=== PATIENT | female | born 1945 ===

== ENCOUNTER 2018-02-14 09:21 | Emergency (ER) | payer MEDICARE, MEDICAID ==
--- NOTE | 2018-02-14 10:19 | ED PDOC ---
Lower Extremity Pain/Injury Time Seen by Provider: 02/14/18 09:55 Chief Complaint (Nursing): Lower Extremity Problem/Injury Chief Complaint (Provider): Lower Extremity Problem/Injury History Per: Other (home health aid) History/Exam Limitations: clinical condition (dementia; CVA) Onset/Duration Of Symptoms: Days (x2) Current Symptoms Are (Timing): Still Present Additional Complaint(s): 72 year old female with pmHx of CVA, dementia, and HTN, arrives to ED with home health aid for an evaluation of right leg pain since yesterday. Patient was given her normal dose of Neurontin but did not take any other medication for pain. Of note, patient is a poor historian and has limited mobility. 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 PCP: Dr. Mc Russell Past Medical History Reviewed: Historical Data, Nursing Documentation, Vital Signs Vital Signs: Last Vital Signs Temp 98.9 F 02/14/18 09:24 Pulse 69 02/14/18 09:24 Resp 18 02/14/18 09:24 BP 151/68 H 02/14/18 09:24 Pulse Ox 96 02/14/18 09:24 - Medical History PMH: CVA, Dementia, Diabetes, HTN, Hyperlipidemia - Family History Family History: States: Unknown Family Hx - Immunization History Hx Tetanus Toxoid Vaccination: No Hx Influenza Vaccination: No Hx Pneumococcal Vaccination: No - Home Medications Home Medications: Ambulatory Orders Medication Instructions Recorded RX: Aspirin [Aspirin Chewable] 81 mg PO DAILY 04/07/16 RX: Atorvastatin Calcium 20 mg PO HS 04/07/16 RX: Clopidogrel [Plavix] 75 mg PO DAILY 04/07/16 RX: Gabapentin [Neurontin] 1 - 3 cap PO HS 04/07/16 RX: Insulin Aspart/Insulin Aspar 12 units SQ BID 04/07/16 [Novolog Mix 70/30 (70/30 units/ml)] RX: Insulin Detemir [Levemir] 40 unit SQ DAILY 04/07/16 RX: Lisinopril [Zestril] 10 mg PO DAILY 04/07/16 RX: Metformin HCl [Glucophage] 500 mg PO BID 04/07/16 RX: Multivit-Min/FA/Lycopen/Lutein 1 each PO DAILY 04/07/16 [Centrum Silver Tablet] RX: amLODIPine [Norvasc] 10 mg PO DAILY 04/07/16 Cephalexin [cephalexin] 500 mg PO Q8 #15 cap 04/14/16 RX: traMADol [Ultram] 50 mg PO Q6 PRN #30 tab 04/14/16 - Allergies Allergies/Adverse Reactions: Allergies Allergy/AdvReac Type Severity Reaction Status Date / Time No Known Allergies Allergy Verified 02/14/18 09:35 Review of Systems ROS Statement: Except As Marked, All Systems Reviewed And Found Negative Musculoskeletal: Positive for: Leg Pain (right-sided) Physical Exam - Reviewed Nursing Documentation Reviewed: Yes Vital Signs Reviewed: Yes - Physical Exam Appears: Positive for: Non-toxic, No Acute Distress Head Exam: Positive for: ATRAUMATIC, NORMAL INSPECTION Skin: Positive for: Warm, Dry Eye Exam: Positive for: EOMI Extremity: Positive for: Normal ROM (right leg and foot joints), Capillary Refill (< 2 seconds to bilateral legs), Other (right leg weaker compared to left). Negative for: Tenderness, Pedal Edema, Calf Tenderness, Deformity, Swelling (or erythema/ecchymosis) Neurologic/Psych: Positive for: Alert, Other - ECG O2 Sat by Pulse Oximetry: 96 (RA) Pulse Ox Interpretation: Normal - Progress Re-evaluation Time: 15:00 Condition: Re-examined, Improved Medical Decision Making Medical Decision Making: Initial Impression: Leg pain Differential Diagnosis: musculoskeletal pain, DVT, neuropathy Initial Plan: * Ultram 50mg PO * US duplex right LE Time: 1141 --POC glucose: 115 Time: 13:32 US Lower Extremity FINDINGS: COMMON FEMORAL VEIN: Unremarkable. SUPERFICIAL FEMORAL VEIN: Unremarkable. POPLITEAL VEIN: Unremarkable. POSTERIOR TIBIAL VEIN: Unremarkable. OTHER FINDINGS: None. IMPRESSION: No evidence of deep venous thrombosis in the right lower extremity. Scribe Attestation: Documented by Tiffanie Maxwell, acting as a scribe for Peyton Bunch MD. Provider Scribe Attestation: All medical record entries made by the Scribe were at my direction and personally dictated by me. I have reviewed the chart and agree that the record accurately reflects my personal performance of the history, physical exam, medical decision making, and the department course for this patient. I have also personally directed, reviewed, and agree with the discharge instructions and disposition. Disposition - Clinical Impression Clinical Impression: Leg pain - Patient ED Disposition Is Patient to be Admitted: No Doctor Will See Patient In The: Office Counseled Patient/Family Regarding: Studies Performed, Diagnosis, Need For Followup - Disposition Referrals: Mc Russell MD [Family Provider] - Disposition: Routine/Home Disposition Time: 15:00 Condition: GOOD Additional Instructions: MARY JOYNER, thank you for letting us take care of you today. Your provider was Peyton Bunch MD and you were treated for LT LEG PAIN. The emergency medical care you received today was directed at your acute symptoms. If you were prescribed any medication, please fill it and take as directed. It may take several days for your symptoms to resolve. Return to the Emergency Department if your symptoms worsen, do not improve, or if you have any other problems. Please contact your doctor or call one of the physicians/clinics you have been referred to that are listed on the Patient Visit Information form that is included in your discharge packet. Bring any paperwork you were given at discharge with you along with any medications you are taking to your follow up visit. Our treatment cannot replace ongoing medical care by a primary care provider outside of the emergency department. Thank you for allowing the [facility] team to be part of your care today. If you had an X-Ray or CT scan: A Radiologist will review the ED reading if any change in treatment is needed we will contact you. If you had a blood, urine, or wound culture: It will take several days for the results, if any change in treatment is needed we will contact you. If you had an STI test: It will take 48 hours for the results. Please call after 1 week if you have not heard back. Instructions: Muscle and Bone Pain (DC) Print Language: THAI
--- NOTE | 2018-02-14 13:35 | US ---
Date of service: 02/14/2018 PROCEDURE: Right lower extremity venous duplex Doppler. HISTORY: right leg pain COMPARISON: None available. TECHNIQUE: Common femoral, superficial femoral, popliteal and posterior tibial veins were evaluated. Flow was assessed with color Doppler, compressibility, assessment of phasic flow and augmentation response. FINDINGS: COMMON FEMORAL VEIN: Unremarkable. SUPERFICIAL FEMORAL VEIN: Unremarkable. POPLITEAL VEIN: Unremarkable. POSTERIOR TIBIAL VEIN: Unremarkable. OTHER FINDINGS: None. IMPRESSION: No evidence of deep venous thrombosis in the right lower extremity.
[2018-02-14 18:21] VITALS: BP 140/70; PULSE 77; RESP 17; TEMP 98.1
[2018-02-14 20:40] VITALS: O2SAT 96
== END 2018-02-14 20:03 | disposition home or self-care (01) ==
LOC: H.ER 09:21
DX: M79.605 Pain in left leg (principal); E11.9 Type 2 diabetes mellitus without complications; Z79.4 Long term (current) use of insulin; E78.5 Hyperlipidemia, unspecified; F03.90 Unspecified dementia, unspecified severity, without behavioral disturbance, psychotic disturbance, mood disturbance, and anxiety; I10 Essential (primary) hypertension; Z79.82 Long term (current) use of aspirin; Z86.73 Personal history of transient ischemic attack (TIA), and cerebral infarction without residual deficits

== ENCOUNTER 2018-03-04 09:54 | Inpatient (IN) | payer MEDICARE, MEDICAID ==
--- NOTE | 2018-03-04 10:26 | ED PDOC ---
HPI: Trauma/Fall - HPI Time Seen by Provider: 03/04/18 10:06 Chief Complaint (Nursing): Trauma Chief Complaint (Provider): Trauma History Per: Patient History/Exam Limitations: no limitations Injury Occurred (Timing): Just Before Arrival Location Of Injury: Posterior: Head Associated Symptoms: denies: LOC Additional Complaint(s): 72 year old female with a history of a CVA, a distal fibula fracture and diabetes presents to the ED via EMS with a head injury. Patient was in the bathroom of her house this morning when she slipped and fell, landing on her head. She reports no other new injury. Takes aspirin and Plavix daily. Patient does have a cachectic right leg from the stroke years ago and is also unable to lift right arm. She was evaluated for leg pain at this ED on 02/14/2018 and discharged. Denies neck pain, chest pain, back pain, vision changes, LOC, dizziness, palpitations, trouble breathing or other symptoms. PMD: Dr. cM Russell - Fall Fall:Prior To Injury: Slipped Past Medical History Reviewed: Historical Data, Nursing Documentation, Vital Signs Vital Signs: Last Vital Signs Temp 98.7 F 03/04/18 09:58 Pulse 68 03/04/18 09:58 Resp 18 03/04/18 09:58 BP 137/86 03/04/18 09:58 Pulse Ox 95 03/04/18 09:58 - Medical History PMH: CVA, Dementia, Diabetes, HTN, Hyperlipidemia - Surgical History Surgical History: No Surg Hx - Family History Family History: States: Unknown Family Hx - Immunization History Hx Tetanus Toxoid Vaccination: No Hx Influenza Vaccination: No Hx Pneumococcal Vaccination: No - Home Medications Home Medications: Ambulatory Orders Medication Instructions Recorded Insulin Aspart/Insulin Aspar 18 units SQ QAM 04/07/16 [Novolog Mix 70/30 (70/30 units/ml)] amLODIPine [Norvasc] 10 mg PO DAILY 04/07/16 Aspirin [Ecotrin] 81 mg PO DAILY 03/04/18 Atorvastatin [Lipitor] 20 mg PO HS 03/04/18 Clopidogrel [Plavix] 75 mg PO DAILY 03/04/18 Gabapentin [Neurontin] 300 mg PO BID 03/04/18 Insulin Aspart/Insulin Aspar 14 units SC QPM 03/04/18 [Novolog Mix 70/30 (70/30 units/ml)] Insulin Glargine,Hum.rec.anlog 20 units SC HS 03/04/18 [Basaglar Kwikpen U-100] Lisinopril [Zestril] 10 mg PO DAILY 03/04/18 - Allergies Allergies/Adverse Reactions: Allergies Allergy/AdvReac Type Severity Reaction Status Date / Time No Known Allergies Allergy Verified 02/14/18 09:35 Review of Systems ROS Statement: Except As Marked, All Systems Reviewed And Found Negative Skin: Positive for: Other (hematoma on posterior head) Physical Exam - Reviewed Nursing Documentation Reviewed: Yes Vital Signs Reviewed: Yes - Physical Exam Appears: Positive for: Non-toxic, No Acute Distress Head Exam: Positive for: NORMAL INSPECTION, NORMOCEPHALIC ((+) hematoma on posterior right head with mild tenderness; no growth or laceration). Negative for: ATRAUMATIC Skin: Positive for: Normal Color, Warm, Dry Eye Exam: Positive for: Normal appearance, EOMI, PERRL Neck: Positive for: Normal, Painless ROM, Supple. Negative for: Limited ROM Cardiovascular/Chest: Positive for: Regular Rate, Rhythm. Negative for: Murmur Respiratory: Positive for: Normal Breath Sounds. Negative for: Respiratory Distress Gastrointestinal/Abdominal: Positive for: Normal Exam, Soft. Negative for: Tenderness, Guarding Back: Positive for: Normal Inspection. Negative for: L CVA Tenderness, R CVA Tenderness Extremity: Positive for: Normal ROM (difficulty moving right leg; cachectic for many years; left leg full ROM ), Other (3/5 strength from left leg up. Patient is unable to lift left arm due to stroke; 5/5 strength in right side) Neurologic/Psych: Positive for: Alert, Oriented. Negative for: Motor/Sensory Deficits - Laboratory Results Result Diagrams: 03/04/18 10:35 03/04/18 10:35 Interpretation Of Abn Labs: 30/1.6 bun/cr - ECG ECG: Positive for: Interpreted By Me, Viewed By Me ECG Rhythm: Positive for: Normal QRS, Normal ST Segment, Sinus Rhythm O2 Sat by Pulse Oximetry: 95 (RA) Pulse Ox Interpretation: Normal - CT Scan/US ct Other Rad Studies (CT/US): Read By Radiologist Other Rad Interpretation: no acute - Progress ED Course And Treament: 1502: Spoke with Dr. Russell who will admit give further orders when pt. reaches floor. AAOx3. Will need obs as pt. is on plavix and asa. Medical Decision Making Medical Decision Makin:28 Impression: fall; head injury Initial Plan: --CT C-spine --CT Head --EKG --CMP --Troponin --CBC --PTT --Prothrombin --Glucose POC --NS IV Scribe Attestation: Documented by Sudha Barrios, acting as a scribe for Dmitriy Tirado MD Provider Scribe Attestation: All medical record entries made by the Scribe were at my direction and personally dictated by me. I have reviewed the chart and agree that the record accurately reflects my personal performance of the history, physical exam, med [facility] decision making, and the department course for this patient. I have also personally directed, reviewed, and agree with the discharge instructions and disposition. Disposition - Clinical Impression Clinical Impression: Head injury - Patient ED Disposition Is Patient to be Admitted: Yes Counseled Patient/Family Regarding: Studies Performed, Diagnosis - Disposition Disposition Time: 15:03 Condition: FAIR - Pt Status Changed To: Hospital Disposition Of: Observation - POA Present On Arrival: Falls Or Trauma
[2018-03-04] MEDS ORDERED: Sodium Chloride 0.9% 500 ML IV STA (10:28)
[2018-03-04 10:41] LABS: BASO # 0.1 K/uL (0.0-0.2); EOS # 0.5 K/uL (0.0-0.7); EOS % 7.4 % (0.0-4.0); HEMOGLOBIN 12.8 g/dL (12.0-16.0); LYMPH # 1.4 K/uL (1.0-4.3); LYMPH % 20.2 % (20.0-40.0); MEAN CELL VOLUME 88.2 fl (81.0-99.0); MEAN CORPUSCULAR HEMOGLOBIN 28.1 pg (27.0-31.0); MEAN CORPUSCULAR HGB CONC 31.9 g/dL (33.0-37.0); MEAN PLATELET VOLUME 7.4 fl (7.2-11.7); MONO # 0.6 K/uL (0.0-0.8); NEUT # 4.5 K/uL (1.8-7.0); NEUT % 63.4 % (50.0-75.0); RBC 4.54 Mil/uL (3.80-5.20); RED CELL DISTRIBUTION WIDTH 15.2 % (11.5-14.5); WHITE BLOOD COUNT 7.1 K/uL (4.8-10.8)
[2018-03-04 10:44] LABS: PROTHROMBIN TIME 11.3 Seconds (9.8-13.1)
[2018-03-04 10:47] LABS: PARTIAL THROMBOPLASTIN TIME 31.8 Seconds (25.6-37.1)
[2018-03-04 11:02] LABS: ALBUMIN 3.7 g/dL (3.5-5.0); ALT/SGPT 28 U/L (9-52); AST/SGOT 31 U/L (14-36); BLOOD UREA NITROGEN 30 mg/dl (7-17); CALCIUM 9.1 mg/dL (8.4-10.2); GFR NON-AFRICAN AMERICAN 32
--- NOTE | 2018-03-04 12:31 | CT ---
Date of service: 03/04/2018 PROCEDURE: CT HEAD WITHOUT CONTRAST. HISTORY: Headache COMPARISON: Comparison made with prior CT scan and MRI of the brain dated 09/19/2012 and 03/01/2007 respectively. TECHNIQUE: Axial computed tomography images were obtained through the head/brain without intravenous contrast. Radiation dose: Total exam DLP = 830.06 mGy-cm. This CT exam was performed using one or more of the following dose reduction techniques: Automated exposure control, adjustment of the mA and/or kV according to patient size, and/or use of iterative reconstruction technique. FINDINGS: HEMORRHAGE: No acute parenchymal, subarachnoid or extra-axial hemorrhage. BRAIN: Redemonstrated is a large area of cystic encephalomalacia which involves most of the left cerebral hemisphere associated with ex vacuo dilatation of the including the lateral basal ganglia associated with ex vacuo dilatation of the left lateral ventricle... Will area in degeneration left cerebral peduncle as well as superior aspect of the kay. In addition, there also appears to be mild chronic periventricular white matter ischemic changes extending into the deep white matter right cerebral hemisphere. Moderate generalized volume loss right cerebral hemisphere, not withstanding encephalomalacia left cerebral hemisphere. Vascular calcifications both carotid siphons and vertebral arteries.. VENTRICLES: No obstructive hydrocephalus. CALVARIUM: Unremarkable. PARANASAL SINUSES: Minimal mucosal thickening within the sphenoid sinus the. MASTOID AIR CELLS: Unremarkable as visualized. No inflammatory changes. OTHER FINDINGS: Changes of bilateral cataract surgery again noted. IMPRESSION: No acute intracranial hemorrhage. Redemonstrated is a large area of cystic encephalomalacia which involves most of the left cerebral hemisphere associated with ex vacuo dilatation of the including the lateral basal ganglia associated with ex vacuo dilatation of the left lateral ventricle... Will area in degeneration left cerebral peduncle as well as superior aspect of the kay. In addition, there also appears to be mild chronic periventricular white matter ischemic changes extending into the deep white matter right cerebral hemisphere. Moderate generalized volume loss right cerebral hemisphere, not withstanding encephalomalacia left cerebral hemisphere
--- NOTE | 2018-03-04 12:39 | CT ---
Date of service: 03/04/2018 PROCEDURE: CT Cervical Spine without contrast HISTORY: neck pain COMPARISON: None available. TECHNIQUE: Axial computed tomography images were obtained of the cervical spine without the use of intravenous contrast. Coronal and sagittal reformatted images were created and reviewed. Radiation dose: Total exam DLP = 511.14 mGy-cm. This CT exam was performed using one or more of the following dose reduction techniques: Automated exposure control, adjustment of the mA and/or kV according to patient size, and/or use of iterative reconstruction technique. FINDINGS: VERTEBRAE: No acute compression fractures no retropulsed fragments. Vertebral bodies exhibit normal stature. There is straightening of the normal cervical lordosis which could be due to patient positioning in the gantry however underlying element of muscle spasm may contribute DISCS/SPINAL CANAL/NEURAL FORAMINA: Moderate multilevel degenerative spondylosis. Changes include varying degrees of disc space narrowing, endplate eburnation with subchondral cystic changes.. Varying degrees of small to medium-sized osteophytic ridge disc complexes are present throughout. At the C3-C4 level, there is disc space narrowing with small osteophytic ridge disc complex contiguous with hypertrophic uncovertebral joints. Facets also hypertrophic. These changes result in moderate- significant central canal narrowing as well as cord compression left greater than right. There is also bilateral foraminal stenosis.. Similar degenerative changes are present at the C4-C5 level however there is less significant a canal narrowing and cord compression at this level. Exit foramina stenotic bilaterally. At the C5-C6 level, there is irregular ridge disc complex that is focally larger on the left than the right and results in compressive effects on the ventral surface of the thecal sac and spinal cord again more so on the right side. Exit foramina stenotic bilaterally. Slightly less severe changes seen at the C6-C7 level however there are bilateral foraminal stenotic changes. PARASPINAL SOFT TISSUES: Unremarkable. OTHER FINDINGS: Lung apices clear.. IMPRESSION: No acute fractures. Multilevel degenerative spondylosis most notably affecting the C3-C4 through the C5-C6 levels as detailed above.
--- NOTE | 2018-03-04 16:04 | CP.PCM.CON ---
History of Present Illness - History of Present Illness History of Present Illness: Neurology Consultation Note: Mrs. Martinez is a 72-year-old woman, referred to me by Dr. Tirado, with a past medical history of a previous left sided MCA ischemic stroke with residual right side hemiplegia and aphasia, who had a fall in the bathroom and struck her head. She was brought to the ED and non-contrast CT scan of the head did not show any acute findings. The patient had no complaints. Review of Systems - Review of Systems Systems not reviewed;Unavailable: Other Review of Systems: aphasic Past Patient History - Past Social History Smoking Status: Never Smoked - CARDIAC Hx Hypertension: Yes - NEUROLOGICAL Hx Dementia: Yes - ENDOCRINE/METABOLIC Hx Endocrine Disorders: Yes (DM) Hx Diabetes Mellitus Type 2: Yes - MUSCULOSKELETAL/RHEUMATOLOGICAL Hx Musculoskeletal Disorders: Yes (R distal fib fracture) Hx Falls: Yes - PSYCHIATRIC Hx Substance Use: No Meds Allergies/Adverse Reactions: Allergies Allergy/AdvReac Type Severity Reaction Status Date / Time No Known Allergies Allergy Verified 02/14/18 09:35 - Medications Medications: Current Medications Amlodipine Besylate (Norvasc) 10 mg PO DAILY [facility] Atorvastatin Calcium (Lipitor) 20 mg PO HS [facility] Gabapentin (Neurontin) 300 mg PO BID [facility] Insulin Detemir (Levemir) 20 units SC HS [facility] Insulin Lispro Protam/Lispro Human (Humalog Mix 75/25) 14 units SC QPM [facility] Insulin Lispro Protam/Lispro Human (Humalog Mix 75/25) 18 units SC QAM [facility] Lisinopril (Zestril) 10 mg PO DAILY [facility] Physical Exam - Constitutional Appears: Well - Head Exam Additional comments: right parietal scalp hematoma - Eye Exam Eye Exam: EOMI, Normal appearance, PERRL Pupil Exam: NORMAL ACCOMODATION, PERRL - ENT Exam ENT Exam: Mucous Membranes Moist, Normal Exam - Neck Exam Neck exam: Positive for: Normal Inspection - Respiratory Exam Respiratory Exam: Clear to Auscultation Bilateral, NORMAL BREATHING PATTERN - Cardiovascular Exam Cardiovascular Exam: REGULAR RHYTHM, +S1, +S2 - GI/Abdominal Exam GI & Abdominal Exam: Normal Bowel Sounds, Soft. absent: Tenderness - Rectal Exam Rectal Exam: Deferred - Extremities Exam Extremities exam: Positive for: normal inspection - Back Exam Back exam: NORMAL INSPECTION - Neurological Exam Neurological exam: Alert, CN II-XII Intact, Oriented x3 Additional comments: Aphasia and right side hemiplegia noted on exam. Gait not tested. - Psychiatric Exam Psychiatric exam: Normal Affect, Normal Mood - Skin Skin Exam: Dry, Intact, Normal Color, Warm Results - Vital Signs Recent Vital Signs: Last Vital Signs Temp 97 F L 03/04/18 15:38 Pulse 80 03/04/18 15:38 Resp 19 03/04/18 15:38 BP 164/90 H 03/04/18 15:38 Pulse Ox 98 03/04/18 15:38 - Labs Result Diagrams: 03/04/18 10:35 03/04/18 10:35 Labs: Laboratory Results - last 24 hr 03/04/18 03/04/18 03/04/18 10:11 10:35 10:35 WBC 7.1 RBC 4.54 Hgb 12.8 Hct 40.1 MCV 88.2 MCH 28.1 MCHC 31.9 L RDW 15.2 H Plt Count 280 MPV 7.4 Neut % (Auto) 63.4 Lymph % (Auto) 20.2 Collin % (Auto) 8.0 Eos % (Auto) 7.4 H Baso % (Auto) 1.0 Neut # (Auto) 4.5 Lymph # (Auto) 1.4 Collin # (Auto) 0.6 Eos # (Auto) 0.5 Baso # (Auto) 0.1 PT INR APTT Sodium 139 Potassium 4.6 Chloride 102 Carbon Dioxide 31 H Anion Gap 11 BUN 30 H Creatinine 1.6 H Est GFR ( Amer) 38 Est GFR (Non-Af Amer) 32 POC Glucose (mg/dL) 95 Random Glucose 109 H Calcium 9.1 Total Bilirubin 0.5 AST 31 ALT 28 Alkaline Phosphatase 93 Troponin I < 0.0120 Total Protein 7.4 Albumin 3.7 Globulin 3.7 Albumin/Globulin Ratio 1.0 03/04/18 10:35 WBC RBC Hgb Hct MCV MCH MCHC RDW Plt Count MPV Neut % (Auto) Lymph % (Auto) Collin % (Auto) Eos % (Auto) Baso % (Auto) Neut # (Auto) Lymph # (Auto) Collin # (Auto) Eos # (Auto) Baso # (Auto) PT 11.3 INR 1.0 APTT 31.8 Sodium Potassium Chloride Carbon Dioxide Anion Gap BUN Creatinine Est GFR ( Amer) Est GFR (Non-Af Amer) POC Glucose (mg/dL) Random Glucose Calcium Total Bilirubin AST ALT Alkaline Phosphatase Troponin I Total Protein Albumin Globulin Albumin/Globulin Ratio Assessment & Plan (1) Head injury Assessment and Plan: No acute findings on CT head that are of concern. The patient is clinically at baseline with no new complaints. I recommend observation and discharge if no new symptoms. Consider repeat CT head if there is any concern for new bleeding. Thank you. Status: Acute Priority: Medium
--- NOTE | 2018-03-04 17:58 | CARD ---
APPROVED REPORT Date of service: 03/04/2018 EKG Measurement Heart [id number] IN [id number] [id number] <Conclusion> Normal sinus rhythm Normal ECG
[2018-03-04] MEDS ORDERED: Insulin Lispro Mix 75/25 100 units/ml (HumaLog) 10ml SC SCH ×2 (18:00)
[2018-03-04] MEDS ORDERED: Insulin Detemir 100 Units/ml Inj SC SCH ×2 (22:00)
--- NOTE | 2018-03-04 23:37 | CP.PCM.HP ---
History of Present Illness - History of Present Illness History of Present Illness: 72 yo with hx of L CVA admitted for fall with head trauma Present on Admission - Present on Admission Any Indicators Present on Admission: No Past Patient History - Past Medical History & Family History Past Medical History?: Yes - Past Social History Smoking Status: Never Smoked - CARDIAC Hx Cardiac Disorders: Yes Hx Hypercholesterolemia: Yes Hx Hypertension: Yes - PULMONARY Hx Respiratory Disorders: No - NEUROLOGICAL Hx Neurological Disorder: Yes HX Cerebrovascular Accident: Yes Hx Dementia: Yes - HEENT Hx HEENT Problems: No - RENAL Hx Chronic Kidney Disease: No - ENDOCRINE/METABOLIC Hx Endocrine Disorders: Yes (DM) Hx Diabetes Mellitus Type 2: Yes - HEMATOLOGICAL/ONCOLOGICAL Hx Blood Disorders: No Hx AIDS: No Hx Human Immunodeficiency Virus (HIV): No - INTEGUMENTARY Hx Dermatological Problems: No - MUSCULOSKELETAL/RHEUMATOLOGICAL Hx Musculoskeletal Disorders: Yes (R distal fib fracture) Hx Falls: Yes - GASTROINTESTINAL Hx Gastrointestinal Disorders: No - GENITOURINARY/GYNECOLOGICAL Hx Genitourinary Disorders: No - PSYCHIATRIC Hx Psychophysiologic Disorder: No Hx Substance Use: No - SURGICAL HISTORY Hx Surgeries: No - ANESTHESIA Hx Anesthesia: Yes Hx Anesthesia Reactions: No Hx Malignant Hyperthermia: No Has any member of the family had a problem w/ anesthesia?: No Meds Home Medications: Home Medication List Medication Instructions Recorded Confirmed Type Cefdinir [Omnicef] 300 mg PO Q12 #10 cap 03/08/18 Rx Nystatin [Nystop Topical Powder] 1 applic TOP TID #1 bottle 03/08/18 Rx Allergies/Adverse Reactions: Allergies Allergy/AdvReac Type Severity Reaction Status Date / Time No Known Allergies Allergy Verified 02/14/18 09:35 Physical Exam - Respiratory Exam Respiratory Exam: NORMAL BREATHING PATTERN - Cardiovascular Exam Cardiovascular Exam: REGULAR RHYTHM - GI/Abdominal Exam GI & Abdominal Exam: Normal Bowel Sounds Results - Vital Signs Recent Vital Signs: Last Vital Signs Temp 98.4 F 03/04/18 20:14 Pulse 78 03/04/18 20:14 Resp 16 03/04/18 20:14 BP 155/76 H 03/04/18 20:14 Pulse Ox 92 L 03/04/18 20:14 - Labs Result Diagrams: 03/04/18 10:35 03/08/18 04:55 Labs: Laboratory Results - last 24 hr 11/24/18 11/24/18 11/24/18 10:11 10:35 10:35 WBC 7.1 RBC 4.54 Hgb 12.8 Hct 40.1 MCV 88.2 MCH 28.1 MCHC 31.9 L RDW 15.2 H Plt Count 280 MPV 7.4 Neut % (Auto) 63.4 Lymph % (Auto) 20.2 [place] % (Auto) 8.0 Eos % (Auto) 7.4 H Baso % (Auto) 1.0 Neut # (Auto) 4.5 Lymph # (Auto) 1.4 [place] # (Auto) 0.6 Eos # (Auto) 0.5 Baso # (Auto) 0.1 PT INR APTT Sodium 139 Potassium 4.6 Chloride 102 Carbon Dioxide 31 H Anion Gap 11 BUN 30 H Creatinine 1.6 H Est GFR ( Amer) 38 Est GFR (Non-Af Amer) 32 POC Glucose (mg/dL) 95 Random Glucose 109 H Calcium 9.1 Total Bilirubin 0.5 AST 31 ALT 28 Alkaline Phosphatase 93 Troponin I < 0.0120 Total Protein 7.4 Albumin 3.7 Globulin 3.7 Albumin/Globulin Ratio 1.0 03/04/18 03/04/18 03/04/18 10:35 18:15 21:46 WBC RBC Hgb Hct MCV MCH MCHC RDW Plt Count MPV Neut % (Auto) Lymph % (Auto) [place] % (Auto) Eos % (Auto) Baso % (Auto) Neut # (Auto) Lymph # (Auto) [place] # (Auto) Eos # (Auto) Baso # (Auto) PT 11.3 INR 1.0 APTT 31.8 Sodium Potassium Chloride Carbon Dioxide Anion Gap BUN Creatinine Est GFR ( Amer) Est GFR (Non-Af Amer) POC Glucose (mg/dL) 177 H Random Glucose Calcium Total Bilirubin AST ALT Alkaline Phosphatase Troponin I < 0.0120 Total Protein Albumin Globulin Albumin/Globulin Ratio Assessment & Plan - Assessment and Plan (Free Text) Assessment: Fall/ Head trauma Hx L CVA admit for observatoin NIDDM Diabetic nephropathy Nephrology Endo - Date & Time Date: 03/04/18 Time: 22:22
[2018-03-05] MEDS ORDERED: Insulin Lispro Mix 75/25 100 units/ml (HumaLog) 10ml SC SCH ×2 (09:00)
[2018-03-05 11:18] VITALS: BMI 38.7
--- NOTE | 2018-03-05 14:23 | CP.PCM.PN ---
Subjective - Date & Time of Evaluation Date of Evaluation: 03/05/18 Time of Evaluation: 22:22 - Subjective Subjective: Above noted Objective - Vital Signs/Intake and Output Vital Signs (last 24 hours): Temp Pulse Resp BP Pulse Ox 98.4 F 79 20 150/75 92 L 03/05/18 08:00 03/05/18 08:59 03/05/18 08:00 03/05/18 08:59 03/05/18 08:00 - Medications Medications: Current Medications Amlodipine Besylate (Norvasc) 10 mg PO DAILY [facility] Last Admin: 03/05/18 08:59 Dose: 10 mg Atorvastatin Calcium (Lipitor) 20 mg PO HS [facility] Last Admin: 03/04/18 21:21 Dose: 20 mg Gabapentin (Neurontin) 300 mg PO BID [facility] Last Admin: 03/05/18 08:58 Dose: 300 mg Insulin Detemir (Levemir) 16 units SC HS [facility] Insulin Lispro Protam/Lispro Human (Humalog Mix 75/25) 14 units SC ACD [facility] Insulin Lispro Protam/Lispro Human (Humalog Mix 75/25) 18 units SC ACB [facility] Lisinopril (Zestril) 10 mg PO DAILY [facility] Last Admin: 03/05/18 08:58 Dose: 10 mg - Labs Labs: 03/04/18 10:35 03/04/18 10:35 PT 11.3 Seconds (9.8-13.1) 03/04/18 10:35 INR 1.0 03/04/18 10:35 APTT 31.8 Seconds (25.6-37.1) 03/04/18 10:35 - Respiratory Exam Respiratory Exam: NORMAL BREATHING PATTERN - Cardiovascular Exam Cardiovascular Exam: REGULAR RHYTHM - GI/Abdominal Exam GI & Abdominal Exam: Normal Bowel Sounds Assessment and Plan - Assessment and Plan (Free Text) Assessment: Fall/ Head trauma Hx L CVA admit for observatoin NIDDM Diabetic nephropathy Nephrology Endo
[2018-03-05] MEDS: Insulin Lispro Mix 75/25 100 units/ml (HumaLog) 10ml SC SCH (17:44)
--- NOTE | 2018-03-05 21:21 | CON ---
DATE: 03/05/2018 ENDOCRINOLOGY CONSULTATION LOCATION: Room #407. HISTORY OF PRESENT ILLNESS: This is a 72-year-old female with known history of type 2 insulin-requiring diabetes, being followed closely on the outpatient for diabetic management and presents here with a sudden fall in the bathroom at home sustaining a head injury and is now being followed closely by Neurology, and also being referred for diabetic evaluation and management. PAST MEDICAL HISTORY: As mentioned above, history of type 2 insulin-requiring diabetes with near-optimal metabolic control and her latest A1c was 7.1% as noted. 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 She also had a previous distal fracture in the right leg in the tibia and fibula as noted. SOCIAL HISTORY: The patient has a supportive family. She has a very supportive caregiver at home. No known substance use. REVIEW OF SYSTEMS: As mentioned above. Admits to generalized body weakness with episodic bouts of dizziness and lightheadedness, worse on the day of admission. No chest pains or palpitations or PND. Her oral intake has been improved and satisfactory with occasional dyspepsia and habitual constipation. No recent alterations of bowel and urinary patterns. PHYSICAL EXAMINATION: GENERAL: This Is an overweight female, in no apparent distress. VITAL SIGNS: Blood pressure of 140/80, pulse of 100 beats per minute and regular, temperature 98, respirations 20, height is 5 feet 1 inches, weight is 275 pounds. HEENT: Head: Normocephalic. Eyes: Anicteric with pink conjunctivae. Funduscopy not possible at this time. Ears, nose, and throat otherwise normal. NECK: Supple. Thyroid gland is normal size. No carotid bruits or any cervical adenopathy. CARDIOPULMONARY: Adynamic precordium. S1 and S2 are rapid and regular. LUNGS: Clear to auscultation. ABDOMEN: Obese, soft, with positive bowel sounds. EXTREMITIES: No peripheral edema. Pulses are +2 bilaterally. LABORATORY DATA: Chemistries: BUN of 30, sodium 139, potassium 4.6, chloride 102, CO2 31, glucose 109, and creatinine 1.6. Her glucose levels have ranged from 99 to 177 mg/dL. ASSESSMENT: This is a 72-year-old female with uncontrolled decompensated type 2 insulin-requiring diabetes with near-optimal metabolic control on a premixed and basal insulin combination, presenting here with a head injury and a recent fall at home as noted. She also has diabetic microvascular complications of polyneuropathy and nephropathy with macrovascular complications of cerebrovascular disease, residual right hemiplegia, and coronary artery disease and peripheral arterial disease and vasculopathy. PLAN OF MANAGEMENT: We will continue the current premixed insulin regimen as given with Humalog 75/25 given as 18 units before breakfast and 14 units before dinner as ordered. We will lower the basal insulin with Levemir down to 16 units subcutaneous at bedtime daily because of the variable oral intake as noted thereof. We will obtain a hemoglobin A1c to confirm her prior glycemic control and baseline thyroid function studies will be ordered. We will obtain serial chemistries and supplement accordingly as needed. We will follow. Tiffanie Parisi MD
[2018-03-05] MEDS: Insulin Detemir 100 Units/ml Inj SC SCH (22:53)
[2018-03-06 02:16] LABS: SQUAMOUS EPITHIAL 2 /hpf (0-5); URINE BILIRUBIN NEGATIVE (NEGATIVE); URINE BLOOD SMALL (NEGATIVE); URINE CLARITY TURBID (Clear); URINE COLOR YELLOW (YELLOW); URINE GLUCOSE (UA) NEG (Normal); URINE LEUKOCYTE ESTERASE LARGE Leu/uL (Negative); URINE PROTEIN 100 mg/dL (NEGATIVE); URINE UROBILINOGEN 0.2-1.0 mg/dL (0.2-1.0); WBC CLUMPS MANY /hpf
[2018-03-06 02:40] LABS: URINE BACTERIA MANY (<OCC)
[2018-03-06 06:05] LABS: ALBUMIN 3.4 g/dL (3.5-5.0); CALCIUM 9.2 mg/dL (8.4-10.2)
[2018-03-06 06:12] LABS: T4 6.65 ug/dl (5.5-11.0)
[2018-03-06] MEDS ORDERED: Insulin Lispro Mix 75/25 100 units/ml (HumaLog) 10ml SC SCH (07:30)
--- NOTE | 2018-03-06 09:05 | CP.PCM.CON ---
History of Present Illness - History of Present Illness History of Present Illness: this patient who is 72 years of age female I was called to see her for abnormal kidney function. This patient was admitted because of fall and because she has history of CVA with right side hemiplegia and also aphasia marie reported in t history . She was evaluated by neurology and she has CAT scan Past medical history diabetes mellitus hypertension and CVA hyperlipidemia Review of system as noted below Review of Systems - Constitutional Constitutional: absent: Chills - EENT Eyes: As Per HPI. absent: Exophthalmos Nose/Mouth/Throat: absent: Nasal Congestion - Cardiovascular Cardiovascular: absent: Chest Pain at Rest, Dyspnea, Edema, Leg Edema - Respiratory Respiratory: absent: Cough, Dyspnea, Chest Congestion - Gastrointestinal Gastrointestinal: absent: Abdominal Pain, Coffee Ground Emesis - Genitourinary Genitourinary: Nocturia - Musculoskeletal Musculoskeletal: Muscle Weakness. absent: Numbness - Neurological Neurological: As Per HPI, Numbness, Focal Weakness, Syncope, Weakness - Psychiatric Psychiatric: As Per HPI - Endocrine Endocrine: Fatigue - Hematologic/Lymphatic Hematologic: absent: Easy Bleeding Past Patient History - Past Medical History & Family History Past Medical History?: Yes - Past Social History Smoking Status: Never Smoked - CARDIAC Hx Cardiac Disorders: Yes Hx Hypercholesterolemia: Yes Hx Hypertension: Yes - PULMONARY Hx Respiratory Disorders: No - NEUROLOGICAL Hx Neurological Disorder: Yes HX Cerebrovascular Accident: Yes Hx Dementia: Yes - HEENT Hx HEENT Problems: No - RENAL Hx Chronic Kidney Disease: No - ENDOCRINE/METABOLIC Hx Endocrine Disorders: Yes (DM) Hx Diabetes Mellitus Type 2: Yes - HEMATOLOGICAL/ONCOLOGICAL Hx Blood Disorders: No Hx AIDS: No Hx Human Immunodeficiency Virus (HIV): No - INTEGUMENTARY Hx Dermatological Problems: No - MUSCULOSKELETAL/RHEUMATOLOGICAL Hx Musculoskeletal Disorders: Yes (R distal fib fracture) Hx Falls: Yes - GASTROINTESTINAL Hx Gastrointestinal Disorders: No - GENITOURINARY/GYNECOLOGICAL Hx Genitourinary Disorders: No - PSYCHIATRIC Hx Psychophysiologic Disorder: No Hx Substance Use: No - SURGICAL HISTORY Hx Surgeries: No - ANESTHESIA Hx Anesthesia: Yes Hx Anesthesia Reactions: No Hx Malignant Hyperthermia: No Has any member of the family had a problem w/ anesthesia?: No Meds Allergies/Adverse Reactions: Allergies Allergy/AdvReac Type Severity Reaction Status Date / Time No Known Allergies Allergy Verified 02/14/18 09:35 - Medications Medications: Current Medications Amlodipine Besylate (Norvasc) 10 mg PO DAILY [facility] Last Admin: 03/05/18 08:59 Dose: 10 mg Atorvastatin Calcium (Lipitor) 20 mg PO HS [facility] Last Admin: 03/05/18 22:54 Dose: 20 mg Gabapentin (Neurontin) 300 mg PO BID [facility] Last Admin: 03/05/18 17:43 Dose: 300 mg Insulin Detemir (Levemir) 16 units SC HS [facility] Last Admin: 03/05/18 22:53 Dose: 16 units Insulin Lispro Protam/Lispro Human (Humalog Mix 75/25) 14 units SC ACD [facility] Last Admin: 03/05/18 17:44 Dose: 14 units Insulin Lispro Protam/Lispro Human (Humalog Mix 75/25) 18 units SC ACB [facility] Lisinopril (Zestril) 10 mg PO DAILY [facility] Last Admin: 03/05/18 08:58 Dose: 10 mg Physical Exam - Constitutional Appears: No Acute Distress - Eye Exam Eye Exam: Conjunctival injection - ENT Exam ENT Exam: Mucous Membranes Moist - Neck Exam Neck exam: Negative for: Lymphadenopathy - Respiratory Exam Respiratory Exam: NORMAL BREATHING PATTERN. absent: Chest Wall Tenderness - Cardiovascular Exam Cardiovascular Exam: absent: Gallop, JVD, Rubs - GI/Abdominal Exam GI & Abdominal Exam: Normal Bowel Sounds, Soft. absent: Guarding - Extremities Exam Extremities exam: Negative for: calf tenderness - Back Exam Back exam: absent: CVA tenderness (L), CVA tenderness (R) - Neurological Exam Neurological exam: Alert, Altered Results - Vital Signs Recent Vital Signs: Last Vital Signs Temp 98.3 F 03/06/18 08:52 Pulse 69 03/06/18 08:52 Resp 18 03/06/18 08:52 BP 131/70 03/06/18 08:52 Pulse Ox 93 L 03/06/18 08:52 - Labs Result Diagrams: 03/04/18 10:35 03/06/18 04:30 Labs: Laboratory Results - last 24 hr 03/05/18 03/05/18 03/05/18 10:58 17:06 22:33 Sodium Potassium Chloride Carbon Dioxide Anion Gap BUN Creatinine Est GFR ( Amer) Est GFR (Non-Af Amer) POC Glucose (mg/dL) 251 H 154 H 117 H Random Glucose Calcium Magnesium Total Bilirubin AST ALT Alkaline Phosphatase Total Protein Albumin Globulin Albumin/Globulin Ratio Triglycerides Cholesterol LDL Cholesterol Direct HDL Cholesterol Thyroxine (T4) TSH 3rd Generation Urine Color Urine Clarity Urine pH Ur Specific Scott Urine Protein Urine Glucose (UA) Urine Ketones Urine Blood Urine Nitrate Urine Bilirubin Urine Urobilinogen Ur Leukocyte Esterase Urine RBC (Auto) Urine WBC Clumps (Auto) Urine Microscopic WBC Ur Squamous Epith Cells Ur Transition Epith Cell Urine Bacteria 03/05/18 03/06/18 03/06/18 23:58 04:30 05:18 Sodium 140 Potassium 4.4 Chloride 104 Carbon Dioxide 28 Anion Gap 12 BUN 32 H Creatinine 1.4 H Est GFR ( Amer) 45 Est GFR (Non-Af Amer) 37 POC Glucose (mg/dL) 96 Random Glucose 93 Calcium 9.2 Magnesium 1.9 Total Bilirubin 0.4 AST 22 ALT 23 Alkaline Phosphatase 83 Total Protein 6.9 Albumin 3.4 L Globulin 3.5 Albumin/Globulin Ratio 1.0 Triglycerides 139 D Cholesterol 160 LDL Cholesterol Direct 101 HDL Cholesterol 34 Thyroxine (T4) 6.65 TSH 3rd Generation 1.31 Urine Color Yellow Urine Clarity Turbid Urine pH 6.0 Ur Specific Scott 1.012 Urine Protein 100 Urine Glucose (UA) Neg Urine Ketones Negative Urine Blood Small Urine Nitrate Negative Urine Bilirubin Negative Urine Urobilinogen 0.2-1.0 Ur Leukocyte Esterase Large Urine RBC (Auto) 5 H Urine WBC Clumps (Auto) Many H Urine Microscopic WBC 261 H Ur Squamous Epith Cells 2 Ur Transition Epith Cell < 1 Urine Bacteria Many H Assessment & Plan (1) BETTY (acute kidney injury) Assessment and Plan: rule out acute kidney injury Probably from dehydration though I do not have baseline serum creatinine Serum creatinine coming down on hydration and improving. urinalysis consistent with urine tract infection suggested dual urine culture glycemic control Status: Acute (2) Head injury Status: Acute Priority: Medium (3) Diabetes mellitus Status: Acute (4) CVA (cerebrovascular accident) Status: Chronic
[2018-03-06] MEDS: Insulin Lispro Mix 75/25 100 units/ml (HumaLog) 10ml SC SCH (17:00)
[2018-03-06] MEDS: Proshield Plus GEL TOP SCH (17:30)
--- NOTE | 2018-03-06 20:08 | CP.PCM.PN ---
Subjective - Date & Time of Evaluation Date of Evaluation: 03/06/18 Time of Evaluation: 22:22 - Subjective Subjective: Nephrology and Endo notes appreciated Objective - Vital Signs/Intake and Output Vital Signs (last 24 hours): Temp Pulse Resp BP Pulse Ox 98.8 F 83 18 139/70 93 L 03/06/18 20:03 03/06/18 20:03 03/06/18 20:03 03/06/18 20:03 03/06/18 20:03 - Medications Medications: Current Medications Amlodipine Besylate (Norvasc) 10 mg PO DAILY [facility] Last Admin: 03/06/18 09:22 Dose: 10 mg Atorvastatin Calcium (Lipitor) 20 mg PO HS [facility] Last Admin: 03/05/18 22:54 Dose: 20 mg Dimethicone (Proshield Plus Skin Protectant) 1 applic TOP Q8 [facility] Last Admin: 03/06/18 17:30 Dose: 1 applic Gabapentin (Neurontin) 300 mg PO BID [facility] Last Admin: 03/06/18 17:29 Dose: 300 mg Ceftriaxone Sodium 1 gm/ (Sodium Chloride) 100 mls @ 100 mls/hr IVPB DAILY [facility]; Protocol Insulin Detemir (Levemir) 16 units SC HS [facility] Last Admin: 03/05/18 22:53 Dose: 16 units Insulin Lispro Protam/Lispro Human (Humalog Mix 75/25) 14 units SC ACD [facility] Last Admin: 03/06/18 17:00 Dose: 14 units Insulin Lispro Protam/Lispro Human (Humalog Mix 75/25) 14 units SC ACB [facility] Lisinopril (Zestril) 10 mg PO DAILY [facility] Last Admin: 03/06/18 09:22 Dose: 10 mg Nystatin (Nystop Topical Powder) 1 applic TOP TID [facility] Last Admin: 03/06/18 17:30 Dose: 1 applic - Labs Labs: 03/04/18 10:35 03/06/18 04:30 PT 11.3 Seconds (9.8-13.1) 03/04/18 10:35 INR 1.0 03/04/18 10:35 APTT 31.8 Seconds (25.6-37.1) 03/04/18 10:35 - Respiratory Exam Respiratory Exam: NORMAL BREATHING PATTERN - Cardiovascular Exam Cardiovascular Exam: Tachycardia - GI/Abdominal Exam GI & Abdominal Exam: Normal Bowel Sounds Assessment and Plan - Assessment and Plan (Free Text) Assessment: Fall/ Head trauma Hx L CVA admit for observatoin NIDDM Diabetic nephropathy UTI Abx started creat improving Nephrology Endo
--- NOTE | 2018-03-06 20:18 | PN ---
DATE: 03/06/2018 ENDOCRINOLOGY FOLLOWUP NOTE LOCATION: Room 407. SUBJECTIVE: This is a 72-year-old female with recent uncontrolled type 2 insulin-requiring diabetes presenting here with a head injury and is now being followed closely for metabolic management. Her glycemic levels are fluctuating but improved, and the glucose values today have ranged from 61 to 96 and 298 mg/dL. Her hemoglobin A1c is 7.3%. Her chemistry showed a BUN of 32, sodium 140, potassium 4.4, chloride 104, CO2 of 28, glucose 93, and creatinine 1.4. Her hemoglobin A1c is 7.3% which is near optimal in terms of her outpatient metabolic control of her current insulin regimen as given. However, because of the variability of her oral intake, we will modify her current premixed insulin regimen on the inpatient at this time and lower the Humalog 75/25 to 14 units before breakfast and 14 units before dinner as ordered. We will also continue the modified and lower the basal insulin with Levemir given as 16 units subcu at bedtime daily as ordered. We will continue the low-dose correction scale using Humalog insulin as given. We will titrate incremental as indicated to optimize metabolic control. We will follow and advise accordingly. ASSESSMENT: This is a 72-year-old female with uncontrolled and decompensated type 2 insulin-requiring diabetes with recent metabolic decompensation and dehydration and is now being followed closely for metabolic management. She also has diabetic microvascular complications of retinopathy, polyneuropathy, and nephropathy with underlying chronic kidney disease. She also has diabetic macrovascular complications of cerebrovascular disease with residual right hemiplegia as noted and also coronary artery disease with underlying peripheral arterial disease and vasculopathy. Tiffanie Parisi MD
[2018-03-06] MEDS: Insulin Detemir 100 Units/ml Inj SC SCH (22:21)
[2018-03-06] MEDS: Enoxaparin 30 mg Syringe SC SCH (22:21)
[2018-03-07] MEDS: Proshield Plus GEL TOP SCH ×3 (00:37→17:15)
[2018-03-07] MEDS ORDERED: Insulin Lispro Mix 75/25 100 units/ml (HumaLog) 10ml SC SCH ×2 (07:30→16:30)
[2018-03-07] MEDS: Enoxaparin 30 mg Syringe SC SCH (09:30)
--- NOTE | 2018-03-07 12:36 | CP.PCM.PCO ---
Assessment/Plan - Assessment/Plan Assessment (Free Text): Patient seen and examined this morning. VSS. Urinalysis + leukocytes, UC pending. Receiving iv antibiotics. Discussed with Dr Parisi, BS 402 this morning, as per Dr Parisi patient to continue home regimen of higher insulin dose for discharge. Physiatry consult, Dr Avendaño to see patient for hx of cva with right leg pain and weakness. Discussed with Dr Moody, Labs show K 5.4 Kayexalate ordered, Lisinopril put on hold. All discussed with Dr Eden Pt has a 24 hour live in aide that will continue care for the patient. - Problems Patient Problems: Problem List (Active/Current) Problem Status Onset Code BETTY (acute kidney injury) Acute N17.9 Head injury Acute S09.90XA
[2018-03-07 13:09] LABS: CALCIUM 9.5 mg/dL (8.4-10.2)
[2018-03-07] MEDS ORDERED: Sod Polystyrene Sulf 15 gm/60 ml Susp PO ONE (13:34)
--- NOTE | 2018-03-07 13:40 | CP.PCM.PN ---
Subjective - Date & Time of Evaluation Date of Evaluation: 03/07/18 Time of Evaluation: 13:38 - Subjective Subjective: patient sitting up in the chair awake and consciousness although having difficulty speaking Objective - Vital Signs/Intake and Output Vital Signs (last 24 hours): Temp Pulse Resp BP Pulse Ox 98.6 F 83 18 143/78 93 L 03/07/18 12:00 03/07/18 12:00 03/07/18 12:00 03/07/18 12:00 03/07/18 12:00 - Medications Medications: Current Medications Amlodipine Besylate (Norvasc) 10 mg PO DAILY [facility] Last Admin: 03/07/18 09:30 Dose: 10 mg Atorvastatin Calcium (Lipitor) 20 mg PO HS [facility] Last Admin: 03/06/18 22:20 Dose: 20 mg Dimethicone (Proshield Plus Skin Protectant) 1 applic TOP Q8 [facility] Last Admin: 03/07/18 09:33 Dose: 1 applic Enoxaparin Sodium (Lovenox) 30 mg SC DAILY [facility]; Protocol Last Admin: 03/07/18 09:30 Dose: 30 mg Gabapentin (Neurontin) 300 mg PO BID [facility] Last Admin: 03/07/18 09:30 Dose: 300 mg Ceftriaxone Sodium 1 gm/ (Sodium Chloride) 100 mls @ 100 mls/hr IVPB DAILY [facility]; Protocol Last Admin: 03/07/18 09:39 Dose: 100 mls/hr Insulin Detemir (Levemir) 16 units SC HS [facility] Last Admin: 03/06/18 22:21 Dose: 16 units Insulin Lispro Protam/Lispro Human (Humalog Mix 75/25) 14 units SC ACD [facility] Last Admin: 03/06/18 17:00 Dose: 14 units Insulin Lispro Protam/Lispro Human (Humalog Mix 75/25) 14 units SC ACB [facility] Last Admin: 03/07/18 09:31 Dose: 14 units Nystatin (Nystop Topical Powder) 1 applic TOP TID [facility] Last Admin: 03/07/18 12:10 Dose: 1 applic Sodium Polystyrene Sulfonate (Kayexalate Susp) 15 gm PO ONCE ONE Stop: 03/07/18 13:35 - Labs Labs: 03/04/18 10:35 03/07/18 12:46 PT 11.3 Seconds (9.8-13.1) 03/04/18 10:35 INR 1.0 03/04/18 10:35 APTT 31.8 Seconds (25.6-37.1) 03/04/18 10:35 - Constitutional Appears: No Acute Distress - Eye Exam Eye Exam: Conjunctival injection - ENT Exam ENT Exam: Mucous Membranes Moist - Neck Exam Neck Exam: absent: Lymphadenopathy - Respiratory Exam Respiratory Exam: NORMAL BREATHING PATTERN. absent: Chest Wall Tenderness - Cardiovascular Exam Cardiovascular Exam: absent: Gallop, JVD, Rubs - GI/Abdominal Exam GI & Abdominal Exam: Soft, Normal Bowel Sounds - Extremities Exam Extremities Exam: absent: Calf Tenderness - Back Exam Back Exam: absent: CVA tenderness (L), CVA tenderness (R) - Neurological Exam Neurological Exam: Alert - Skin Skin Exam: absent: Cyanosis Assessment and Plan (1) BETTY (acute kidney injury) Assessment & Plan: acute kidney injury Serum creatinine about 1.6 Hyperkalemia serum potassium 5.4 CVA Hypertension The plan Discussed with the nurse practitioner to give Kayexalate and discontinue lisinopril Patient can have BMP and follow-up as outpatient Status: Acute (2) Head injury Status: Acute (3) Diabetes mellitus Status: Acute (4) CVA (cerebrovascular accident) Status: Chronic
--- NOTE | 2018-03-07 18:12 | CP.PCM.CON ---
History of Present Illness - History of Present Illness History of Present Illness: Dr Avendaño PMR consultation on Sammi Youngblood, born 1945 who has been admitted to [facility] after a fall. 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 She has very limited ambulation with essentially only transfers in spite of fair right proximal LE strength. 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 She does live a lone. + elevator. She now feels that she is at her baseline. Neuro has seen sammi and the imaging did not reveal a significant acute abnormality. Review of Systems - Constitutional Constitutional: absent: Chills, Daytime Sleepiness - EENT Eyes: absent: Change in Vision Ears: absent: Ear Discharge, Ear Pain Nose/Mouth/Throat: absent: Nasal Congestion - Cardiovascular Cardiovascular: absent: Chest Pain - Respiratory Respiratory: absent: Dyspnea, Hemoptysis - Gastrointestinal Gastrointestinal: absent: Belching, Constipation - Musculoskeletal Musculoskeletal: absent: Back Pain, Joint Swelling - Integumentary Integumentary: absent: Bleeding Lesions Past Patient History - Past Medical History & Family History Past Medical History?: Yes - Past Social History Smoking Status: Never Smoked Alcohol: None Drugs: Denies Home Situation {Lives}: Alone (PROJECT INSPECTOR) - CARDIAC Hx Cardiac Disorders: Yes Hx Hypercholesterolemia: Yes Hx Hypertension: Yes - PULMONARY Hx Respiratory Disorders: No - NEUROLOGICAL Hx Neurological Disorder: Yes HX Cerebrovascular Accident: Yes Hx Dementia: Yes - HEENT Hx HEENT Problems: No - RENAL Hx Chronic Kidney Disease: No - ENDOCRINE/METABOLIC Hx Endocrine Disorders: Yes (DM) Hx Diabetes Mellitus Type 2: Yes - HEMATOLOGICAL/ONCOLOGICAL Hx Blood Disorders: No Hx AIDS: No Hx Human Immunodeficiency Virus (HIV): No - INTEGUMENTARY Hx Dermatological Problems: No - MUSCULOSKELETAL/RHEUMATOLOGICAL Hx Musculoskeletal Disorders: Yes (R distal fib fracture) Hx Falls: Yes - GASTROINTESTINAL Hx Gastrointestinal Disorders: No - GENITOURINARY/GYNECOLOGICAL Hx Genitourinary Disorders: No - PSYCHIATRIC Hx Psychophysiologic Disorder: No Hx Substance Use: No - SURGICAL HISTORY Hx Surgeries: No - ANESTHESIA Hx Anesthesia: Yes Hx Anesthesia Reactions: No Hx Malignant Hyperthermia: No Has any member of the family had a problem w/ anesthesia?: No Meds Home Medications: Home Medication List Medication Instructions Recorded Confirmed Type Ciprofloxacin [Cipro] 500 mg PO Q12 #14 tab 03/07/18 Rx Allergies/Adverse Reactions: Allergies Allergy/AdvReac Type Severity Reaction Status Date / Time No Known Allergies Allergy Verified 02/14/18 09:35 - Medications Medications: Current Medications Amlodipine Besylate (Norvasc) 10 mg PO DAILY [facility] Last Admin: 03/07/18 09:30 Dose: 10 mg Atorvastatin Calcium (Lipitor) 20 mg PO HS [facility] Last Admin: 03/06/18 22:20 Dose: 20 mg Dimethicone (Proshield Plus Skin Protectant) 1 applic TOP Q8 [facility] Last Admin: 03/07/18 17:15 Dose: 1 applic Enoxaparin Sodium (Lovenox) 30 mg SC DAILY [facility]; Protocol Last Admin: 03/07/18 09:30 Dose: 30 mg Gabapentin (Neurontin) 300 mg PO BID [facility] Last Admin: 03/07/18 17:11 Dose: 300 mg Ceftriaxone Sodium 1 gm/ (Sodium Chloride) 100 mls @ 100 mls/hr IVPB DAILY [facility]; Protocol Last Admin: 03/07/18 09:39 Dose: 100 mls/hr Insulin Detemir (Levemir) 24 units SC HS [facility] Insulin Lispro Protam/Lispro Human (Humalog Mix 75/25) 20 units SC ACB [facility] Insulin Lispro Protam/Lispro Human (Humalog Mix 75/25) 16 units SC ACD [facility] Last Admin: 03/07/18 17:00 Dose: 16 units Nystatin (Nystop Topical Powder) 1 applic TOP TID [facility] Last Admin: 03/07/18 17:14 Dose: 1 applic Physical Exam - Constitutional Appears: Non-toxic - Head Exam Head Exam: ATRAUMATIC, NORMAL INSPECTION, NORMOCEPHALIC - Eye Exam Eye Exam: EOMI - ENT Exam ENT Exam: Mucous Membranes Moist - Respiratory Exam Respiratory Exam: NORMAL BREATHING PATTERN. absent: Chest Wall Tenderness - Cardiovascular Exam Cardiovascular Exam: REGULAR RHYTHM - GI/Abdominal Exam GI & Abdominal Exam: absent: Distended, Firm - Extremities Exam Extremities exam: Negative for: calf tenderness - Neurological Exam Neurological exam: Alert, Oriented x3 - Psychiatric Exam Psychiatric exam: Normal Affect, Normal Mood - Skin Skin Exam: Warm Results - Vital Signs Recent Vital Signs: Last Vital Signs Temp 98.8 F 03/07/18 15:50 Pulse 77 03/07/18 15:50 Resp 17 03/07/18 15:50 BP 123/71 03/07/18 15:50 Pulse Ox 94 L 03/07/18 15:50 - Labs Result Diagrams: 03/04/18 10:35 03/07/18 12:46 Labs: Laboratory Results - last 24 hr 03/06/18 03/07/18 03/07/18 22:09 05:49 10:38 Sodium Potassium Chloride Carbon Dioxide Anion Gap BUN Creatinine Est GFR ( Amer) Est GFR (Non-Af Amer) POC Glucose (mg/dL) 177 H 199 H 402 H* Random Glucose Calcium 03/07/18 03/07/18 12:46 16:07 Sodium 136 Potassium 5.4 H Chloride 99 Carbon Dioxide 26 Anion Gap 16 BUN 35 H Creatinine 1.5 H Est GFR ( Amer) 41 Est GFR (Non-Af Amer) 34 POC Glucose (mg/dL) 273 H Random Glucose 374 H Calcium 9.5 Assessment & Plan - Assessment and Plan (Free Text) Assessment: dense right UE strength 0/5 right LE 3/5 proximal, weak distally given lack of prior level of function she is at baseline and does not need further skilled care although she should be able to ambulate but is afraid and this is not going to lead to a significant halfway improvement.
--- NOTE | 2018-03-07 20:21 | PN ---
DATE: 03/07/2018 ENDOCRINOLOGY FOLLOWUP NOTE LOCATION: Room 407. This is a 72-year-old female with recent uncontrolled type 2 insulin-requiring diabetes, now being followed closely for metabolic management. Her glycemic levels overnight started to fluctuate with glucose values today of 374 to 402 mg/dL. Her fasting glucose, however, was 199 with a bedtime glucose of 177 mg/dL. Apparently, her morning insulin regimen was given quite late this morning with supervening hyperglycemic accelerations as noted thereof. So at this time, we will modify once again her basal and bolus insulin regimens and increase the Levemir to 24 units subcu at bedtime daily to start tonight. We will also modify her low-dose correction scale to obviate hypoglycemia and detailed orders have been given. Moreover, we will modify her prandial insulin and increase the premixed insulin regimen with Humalog 75/25 given as 20 units before breakfast and increase her premixed insulin regimen at dinnertime to Humalog 75/25 at 16 units to start tonight as ordered. We will obtain serial chemistries and supplement accordingly as needed. We will follow. Tiffanie Parisi MD
--- NOTE | 2018-03-07 21:41 | CP.PCM.PN ---
Subjective - Date & Time of Evaluation Date of Evaluation: 03/07/18 Time of Evaluation: 22:22 - Subjective Subjective: Above noted K+ 5.4 BS 402 Objective - Vital Signs/Intake and Output Vital Signs (last 24 hours): Temp Pulse Resp BP Pulse Ox 98.2 F 79 17 123/61 95 03/07/18 20:05 03/07/18 20:05 03/07/18 20:05 03/07/18 20:05 03/07/18 20:05 - Medications Medications: Current Medications Amlodipine Besylate (Norvasc) 10 mg PO DAILY [facility] Last Admin: 03/07/18 09:30 Dose: 10 mg Atorvastatin Calcium (Lipitor) 20 mg PO HS [facility] Last Admin: 03/06/18 22:20 Dose: 20 mg Dimethicone (Proshield Plus Skin Protectant) 1 applic TOP Q8 [facility] Last Admin: 03/07/18 17:15 Dose: 1 applic Enoxaparin Sodium (Lovenox) 30 mg SC DAILY [facility]; Protocol Last Admin: 03/07/18 09:30 Dose: 30 mg Gabapentin (Neurontin) 300 mg PO BID [facility] Last Admin: 03/07/18 17:11 Dose: 300 mg Ceftriaxone Sodium 1 gm/ (Sodium Chloride) 100 mls @ 100 mls/hr IVPB DAILY [facility]; Protocol Last Admin: 03/07/18 09:39 Dose: 100 mls/hr Insulin Detemir (Levemir) 24 units SC HS [facility] Insulin Lispro Protam/Lispro Human (Humalog Mix 75/25) 20 units SC ACB [facility] Insulin Lispro Protam/Lispro Human (Humalog Mix 75/25) 16 units SC ACD [facility] Last Admin: 03/07/18 17:00 Dose: 16 units Nystatin (Nystop Topical Powder) 1 applic TOP TID [facility] Last Admin: 03/07/18 17:14 Dose: 1 applic - Labs Labs: 03/04/18 10:35 03/07/18 18:48 PT 11.3 Seconds (9.8-13.1) 03/04/18 10:35 INR 1.0 03/04/18 10:35 APTT 31.8 Seconds (25.6-37.1) 03/04/18 10:35 - Respiratory Exam Respiratory Exam: NORMAL BREATHING PATTERN - Cardiovascular Exam Cardiovascular Exam: REGULAR RHYTHM - GI/Abdominal Exam GI & Abdominal Exam: Normal Bowel Sounds Assessment and Plan - Assessment and Plan (Free Text) Assessment: Fall/ Head trauma Hx L CVA NIDDM uncontrolled Endo Diabetic nephropathy Hyperkalemia UTI Abx started creat improving [facility] held Nephrology
[2018-03-07] MEDS ORDERED: Insulin Detemir 100 Units/ml Inj SC SCH ×2 (22:00)
[2018-03-08] MEDS: Proshield Plus GEL TOP SCH ×3 (02:00→17:34)
[2018-03-08 06:03] LABS: ALB/GLOB RATIO 0.9 (1.0-2.1); ALBUMIN 3.2 g/dL (3.5-5.0); CALCIUM 9.1 mg/dL (8.4-10.2)
[2018-03-08] MEDS: Insulin Lispro Mix 75/25 100 units/ml (HumaLog) 10ml SC SCH (07:45)
[2018-03-08] MEDS: Enoxaparin 30 mg Syringe SC SCH (09:14)
--- NOTE | 2018-03-08 13:47 | CP.PCM.PN ---
Subjective - Date & Time of Evaluation Date of Evaluation: 03/08/18 Time of Evaluation: 13:47 - Subjective Subjective: patient out of bed Vital signs stable no nausea no vomiting Objective - Vital Signs/Intake and Output Vital Signs (last 24 hours): Temp Pulse Resp BP Pulse Ox 98.7 F 74 19 113/66 90 L 03/08/18 11:53 03/08/18 11:53 03/08/18 11:53 03/08/18 11:53 03/08/18 11:53 - Medications Medications: Current Medications Amlodipine Besylate (Norvasc) 10 mg PO DAILY [facility] Last Admin: 03/08/18 09:13 Dose: 10 mg Atorvastatin Calcium (Lipitor) 20 mg PO HS [facility] Last Admin: 03/07/18 22:14 Dose: 20 mg Dimethicone (Proshield Plus Skin Protectant) 1 applic TOP Q8 [facility] Last Admin: 03/08/18 09:16 Dose: 1 applic Enoxaparin Sodium (Lovenox) 30 mg SC DAILY [facility]; Protocol Last Admin: 03/08/18 09:14 Dose: 30 mg Gabapentin (Neurontin) 300 mg PO BID [facility] Last Admin: 03/08/18 09:13 Dose: 300 mg Ceftriaxone Sodium 1 gm/ (Sodium Chloride) 100 mls @ 100 mls/hr IVPB DAILY [facility]; Protocol Last Admin: 03/08/18 09:13 Dose: 100 mls/hr Insulin Detemir (Levemir) 24 units SC HS [facility] Last Admin: 03/07/18 22:10 Dose: 24 units Insulin Lispro Protam/Lispro Human (Humalog Mix 75/25) 20 units SC ACB [facility] Last Admin: 03/08/18 07:45 Dose: Not Given Insulin Lispro Protam/Lispro Human (Humalog Mix 75/25) 18 units SC ACD [facility] Nystatin (Nystop Topical Powder) 1 applic TOP TID [facility] Last Admin: 03/08/18 09:16 Dose: 1 applic - Labs Labs: 03/04/18 10:35 03/08/18 04:55 PT 11.3 Seconds (9.8-13.1) 03/04/18 10:35 INR 1.0 03/04/18 10:35 APTT 31.8 Seconds (25.6-37.1) 03/04/18 10:35 - Constitutional Appears: No Acute Distress - Eye Exam Eye Exam: Conjunctival injection - ENT Exam ENT Exam: Mucous Membranes Moist - Neck Exam Neck Exam: absent: Lymphadenopathy - Respiratory Exam Respiratory Exam: absent: Chest Wall Tenderness - Cardiovascular Exam Cardiovascular Exam: absent: Gallop, JVD, Rubs - GI/Abdominal Exam GI & Abdominal Exam: Soft, Normal Bowel Sounds - Extremities Exam Extremities Exam: absent: Calf Tenderness - Back Exam Back Exam: absent: CVA tenderness (L), CVA tenderness (R) - Neurological Exam Neurological Exam: Awake - Skin Skin Exam: absent: Cyanosis Assessment and Plan (1) BETTY (acute kidney injury) Assessment & Plan: acute kidney injury Superimposed on chronic kidney disease stage III Serum creatinine about 1.6 end this stable Hyperkalemia corrected to repeat potassium today normal Urine tract infectirted on antibiotics CVA Hypertension the plan Kidney function stable The biotics for UTI DC lisinopril Status: Acute (2) Head injury Status: Acute (3) Diabetes mellitus Status: Acute (4) CVA (cerebrovascular accident) Status: Chronic
[2018-03-08] MEDS ORDERED: Insulin Lispro Mix 75/25 100 units/ml (HumaLog) 10ml SC SCH (16:30)
--- NOTE | 2018-03-08 19:25 | CP.PCM.PN ---
Subjective - Date & Time of Evaluation Date of Evaluation: 03/08/18 Time of Evaluation: 22:22 - Subjective Subjective: Above noted K+ 4.4 BS good Objective - Vital Signs/Intake and Output Vital Signs (last 24 hours): Temp Pulse Resp BP Pulse Ox 99.2 F 87 20 114/63 94 L 03/08/18 16:30 03/08/18 16:30 03/08/18 16:30 03/08/18 16:30 03/08/18 16:30 - Medications Medications: Current Medications Amlodipine Besylate (Norvasc) 10 mg PO DAILY [facility] Last Admin: 03/08/18 09:13 Dose: 10 mg Atorvastatin Calcium (Lipitor) 20 mg PO HS [facility] Last Admin: 03/07/18 22:14 Dose: 20 mg Dimethicone (Proshield Plus Skin Protectant) 1 applic TOP Q8 [facility] Last Admin: 03/08/18 17:34 Dose: Not Given Enoxaparin Sodium (Lovenox) 30 mg SC DAILY [facility]; Protocol Last Admin: 03/08/18 09:14 Dose: 30 mg Gabapentin (Neurontin) 300 mg PO BID [facility] Last Admin: 03/08/18 17:34 Dose: 300 mg Ceftriaxone Sodium 1 gm/ (Sodium Chloride) 100 mls @ 100 mls/hr IVPB DAILY [facility]; Protocol Last Admin: 03/08/18 09:13 Dose: 100 mls/hr Insulin Detemir (Levemir) 24 units SC HS [facility] Last Admin: 03/07/18 22:10 Dose: 24 units Insulin Lispro Protam/Lispro Human (Humalog Mix 75/25) 20 units SC ACB [facility] Last Admin: 03/08/18 07:45 Dose: Not Given Insulin Lispro Protam/Lispro Human (Humalog Mix 75/25) 18 units SC ACD [facility] Nystatin (Nystop Topical Powder) 1 applic TOP TID [facility] Last Admin: 03/08/18 17:35 Dose: Not Given - Labs Labs: 03/04/18 10:35 03/08/18 04:55 PT 11.3 Seconds (9.8-13.1) 03/04/18 10:35 INR 1.0 03/04/18 10:35 APTT 31.8 Seconds (25.6-37.1) 03/04/18 10:35 - Respiratory Exam Respiratory Exam: NORMAL BREATHING PATTERN - Cardiovascular Exam Cardiovascular Exam: REGULAR RHYTHM - GI/Abdominal Exam GI & Abdominal Exam: Normal Bowel Sounds Assessment and Plan - Assessment and Plan (Free Text) Assessment: Fall/ Head trauma Hx L CVA NIDDM controlled as per Endo Diabetic nephropathy Hyperkalemia UTI Abx started creat improving [facility] held Nephrology
[2018-03-08] MEDS ORDERED: Insulin Detemir 100 Units/ml Inj SC SCH (22:30)
[2018-03-09] MEDS: Proshield Plus GEL TOP SCH (00:36)
--- NOTE | 2018-03-09 04:03 | PN ---
DATE: 03/08/2018 LOCATION: Room 407. SUBJECTIVE: This is a 72-year-old female with recent uncontrolled type 2 insulin-requiring diabetes, now with supervening marked hyperglycemic accelerations as noted today and glucose values ranging from 309 to 355 mg/dL. LABORATORY DATA: Her central office associate glucose was 105 mg/dL. Her latest chemistry showed a BUN of 33, sodium 138, potassium 4.4, chloride 103, CO2 of 29, glucose 100, and creatinine 1.5. Her bedtime glucose was 227 mg/dL. PLAN: So at this time, we will modify once again her basal insulin and increase the Levemir to 26 units subcu at bedtime daily to start tonight. We will also continue the premixed insulin regimen, which was modified to Humalog 75/25 at 20 units a.c. breakfast and 18 units a.c. dinner to start today. We will titrate incrementally as indicated to optimize metabolic control. We will obtain serial chemistries and supplement accordingly as needed. We will follow. Tiffanie Parisi MD
[2018-03-09 08:09] VITALS: BP 107/66; PULSE 62; RESP 18; TEMP 97.4; O2SAT 98
[2018-03-09] MEDS: Insulin Lispro Mix 75/25 100 units/ml (HumaLog) 10ml SC SCH (08:39)
[2018-03-09] MEDS: Enoxaparin 30 mg Syringe SC SCH (08:39)
--- NOTE | 2018-03-09 17:58 | PN ---
DATE: 03/09/2018 ENDOCRINOLOGY FOLLOWUP NOTE LOCATION: In room 407. SUBJECTIVE: This is a 72-year-old female with recent uncontrolled type 2 insulin-requiring diabetes, now being followed closely for metabolic management. Her glycemic levels are fluctuating as noted overnight with glucose values ranging from 217 to 355 mg/dL. LABORATORY DATA: Her chemistry showed a BUN of 33, sodium 138, potassium 4.4, chloride 103, CO2 of 29, glucose 100, and creatinine 1.5. ASSESSMENT AND PLAN: So at this time, we will continue the modified basal and premixed insulin regimen as given with NovoLog 70/30 at home given as 20 units before breakfast and 18 units before dinner as ordered. We will continue the higher dose of basal insulin given as Basaglar at 26 units subcu at bedtime daily as given. We will obtain serial chemistries and supplement accordingly as needed. We will follow. Tiffanie Parisi MD
--- NOTE | 2018-03-09 19:57 | CP.PCM.PN ---
Subjective - Date & Time of Evaluation Date of Evaluation: 03/09/18 Time of Evaluation: 22:22 - Subjective Subjective: Above noted Objective - Vital Signs/Intake and Output Vital Signs (last 24 hours): Temp Pulse Resp BP Pulse Ox 97.4 F L 62 18 107/66 98 03/09/18 09:00 03/09/18 09:00 03/09/18 09:00 03/09/18 09:00 03/09/18 09:00 - Labs Labs: 03/04/18 10:35 03/08/18 04:55 PT 11.3 Seconds (9.8-13.1) 03/04/18 10:35 INR 1.0 03/04/18 10:35 APTT 31.8 Seconds (25.6-37.1) 03/04/18 10:35 - Respiratory Exam Respiratory Exam: NORMAL BREATHING PATTERN - Cardiovascular Exam Cardiovascular Exam: REGULAR RHYTHM - GI/Abdominal Exam GI & Abdominal Exam: Normal Bowel Sounds Assessment and Plan - Assessment and Plan (Free Text) Assessment: Fall/ Head trauma Hx L CVA NIDDM controlled as per Endo Diabetic nephropathy Hyperkalemia UTI Abx started creat improving [facility] held Nephrology
--- NOTE | 2018-03-14 06:05 | CP.PCM.DIS ---
Provider - Provider Date of Admission: 03/07/18 13:34 Attending physician: Mc Russell MD Consults: 03/04/18 14:56 Neurology Consult Stat Comment: Consulting Provider: Murtaza Loza Consulting Physician: Murtaza Loza Reason for Consult: dizziness 03/04/18 17:44 Case Management Referral Routine Comment: Physician Instructions: Reason For Exam: Reason for Referral: Discharge Planning Nursing Referral for Palliative Care Routine Comment: Consulting Provider: Meg Mahmood Physician Instructions: Reason For Exam: nursing assessement Nursing Referral for Wound Care Routine Comment: Physician Instructions: Reason For Exam: Redness to sacrum and right heel area Social Work Referral Routine Comment: Lives alone Physician Instructions: Reason For Exam: Discharge planning 03/05/18 06:15 Nephrology Consult Routine Comment: Consulting Provider: Dakota Moody Consulting Physician: Dakota Moody Reason for Consult: elevated BUN 03/05/18 06:17 Endocrinology Consult Routine Comment: Consulting Provider: Tiffanie Parisi Consulting Physician: Tiffanie Parisi Reason for Consult: Hx of DM 03/07/18 12:15 Physician Consult Routine Comment: Consulting Provider: Morgan Avendaño Consulting Physician: Morgan Avendaño Reason for Consult: right leg pain, hx of cva Additional Comments: Time Spent in preparation of Discharge (in minutes): 5 Diagnosis - Discharge Diagnosis (1) BETTY (acute kidney injury) Status: Acute (2) Diabetes mellitus Status: Acute (3) Head injury Status: Acute Priority: Medium (4) Renal insufficiency syndrome Status: Acute Hospital Course - Lab Results Lab Results: Micro Results 03/06/18 07:51 Urine Urine Culture - Final Escherichia Coli Most Recent Lab Values WBC 7.1 K/uL (4.8-10.8) 03/04/18 10:35 RBC 4.54 Mil/uL (3.80-5.20) 03/04/18 10:35 Hgb 12.8 g/dL (12.0-16.0) 03/04/18 10:35 Hct 40.1 % (34.0-47.0) 03/04/18 10:35 MCV 88.2 fl (81.0-99.0) 03/04/18 10:35 MCH 28.1 pg (27.0-31.0) 03/04/18 10:35 MCHC 31.9 g/dL (33.0-37.0) L 03/04/18 10:35 RDW 15.2 % (11.5-14.5) H 03/04/18 10:35 Plt Count 280 K/uL (130-400) 03/04/18 10:35 MPV 7.4 fl (7.2-11.7) 03/04/18 10:35 Neut % (Auto) 63.4 % (50.0-75.0) 03/04/18 10:35 Lymph % (Auto) 20.2 % (20.0-40.0) 03/04/18 10:35 [place] % (Auto) 8.0 % (0.0-10.0) 03/04/18 10:35 Eos % (Auto) 7.4 % (0.0-4.0) H 03/04/18 10:35 Baso % (Auto) 1.0 % (0.0-2.0) 03/04/18 10:35 Neut # (Auto) 4.5 K/uL (1.8-7.0) 03/04/18 10:35 Lymph # (Auto) 1.4 K/uL (1.0-4.3) 03/04/18 10:35 [place] # (Auto) 0.6 K/uL (0.0-0.8) 03/04/18 10:35 Eos # (Auto) 0.5 K/uL (0.0-0.7) 03/04/18 10:35 Baso # (Auto) 0.1 K/uL (0.0-0.2) 03/04/18 10:35 PT 11.3 Seconds (9.8-13.1) 03/04/18 10:35 INR 1.0 03/04/18 10:35 APTT 31.8 Seconds (25.6-37.1) 03/04/18 10:35 Sodium 138 mmol/l (132-148) 03/08/18 04:55 Potassium 4.4 MMOL/L (3.6-5.0) 03/08/18 04:55 Chloride 103 mmol/L (98-107) 03/08/18 04:55 Carbon Dioxide 29 mmol/L (22-30) 03/08/18 04:55 Anion Gap 10 (10-20) 03/08/18 04:55 BUN 33 mg/dl (7-17) H 03/08/18 04:55 Creatinine 1.5 mg/dl (0.7-1.2) H 03/08/18 04:55 Est GFR ( Amer) 41 03/08/18 04:55 Est GFR (Non-Af Amer) 34 03/08/18 04:55 POC Glucose (mg/dL) 217 mg/dL (65-110) H 03/09/18 05:09 Random Glucose 100 mg/dL (65-105) 03/08/18 04:55 Hemoglobin A1c 7.3 % (4.2-6.5) H 03/06/18 04:30 Calcium 9.1 mg/dL (8.4-10.2) 03/08/18 04:55 Magnesium 1.9 MG/DL (1.6-2.3) 03/06/18 04:30 Total Bilirubin 0.4 mg/dl (0.2-1.3) 03/08/18 04:55 AST 17 U/L (14-36) 03/08/18 04:55 ALT 26 U/L (9-52) 03/08/18 04:55 Alkaline Phosphatase 86 U/L (38-126) 03/08/18 04:55 Troponin I < 0.0120 ng/mL (0.00-0.120) 03/05/18 05:50 Total Protein 6.9 G/DL (6.3-8.2) 03/08/18 04:55 Albumin 3.2 g/dL (3.5-5.0) L 03/08/18 04:55 Globulin 3.7 gm/dL (2.2-3.9) 03/08/18 04:55 Albumin/Globulin Ratio 0.9 (1.0-2.1) L 03/08/18 04:55 Triglycerides 139 mg/DL (0-149) D 03/06/18 04:30 Cholesterol 160 mg/dL (0-199) 03/06/18 04:30 LDL Cholesterol Direct 101 mg/dL (0-129) 03/06/18 04:30 HDL Cholesterol 34 MG/DL (30-70) 03/06/18 04:30 25-OH Vitamin D Total 23.1 NG/ML (30.0-100.0) L 03/06/18 04:30 Thyroxine (T4) 6.65 ug/dl (5.5-11.0) 03/06/18 04:30 TSH 3rd Generation 1.31 mIU/ML (0.46-4.68) 03/06/18 04:30 Urine Color Yellow (YELLOW) 03/05/18 23:58 Urine Clarity Turbid (Clear) 03/05/18 23:58 Urine pH 6.0 (5.0-8.0) 03/05/18 23:58 Ur Specific [place] 1.012 (1.003-1.030) 03/05/18 23:58 Urine Protein 100 mg/dL (NEGATIVE) 03/05/18 23:58 Urine Glucose (UA) Neg mg/dL (Normal) 03/05/18 23:58 Urine Ketones Negative mg/dL (NEGATIVE) 03/05/18 23:58 Urine Blood Small (NEGATIVE) 03/05/18 23:58 Urine Nitrate Negative (NEGATIVE) 03/05/18 23:58 Urine Bilirubin Negative (NEGATIVE) 03/05/18 23:58 Urine Urobilinogen 0.2-1.0 mg/dL (0.2-1.0) 03/05/18 23:58 Ur Leukocyte Esterase Large Joe/uL (Negative) 03/05/18 23:58 Urine RBC (Auto) 5 /hpf (0-3) H 03/05/18 23:58 Urine WBC Clumps (Auto) Many /hpf (NONE) H 03/05/18 23:58 Urine Microscopic WBC 261 /hpf (0-5) H 03/05/18 23:58 Ur Squamous Epith Cells 2 /hpf (0-5) 03/05/18 23:58 Ur Transition Epith Cell < 1 /hpf (0-3) 03/05/18 23:58 Urine Bacteria Many (<OCC) H 03/05/18 23:58 - Hospital Course Hospital Course: Neurologically stable Seen by Nephrology Discharge Exam - Head Exam Head Exam: ATRAUMATIC, NORMAL INSPECTION, NORMOCEPHALIC Discharge Plan - Discharge Medications Prescriptions: Nystatin [Nystop Topical Powder] 1 applic TOP TID #1 bottle Cefdinir [Omnicef] 300 mg PO Q12 #10 cap - Follow Up Plan Condition: FAIR Disposition: DISCHARGED TO HOME CARE Instructions: Preventing Falls in the Older Adult, Acute Kidney Failure (DC) Additional Instructions: follow up with in 1 week Referrals: Mc Russell MD [Staff Provider] -
--- NOTE | 2018-03-16 16:17 | PQF ---
PROVIDER RESPONSE TEXT: As per wound team REVIEWER QUERY TEXT: Documentation Clarification Your help is requested in clarifying the following clinical documentation, if you can please further specify in the medical record and discharge summary. 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 There is a stage 2 healing PI on her left, medial buttock with a pink base.. Skin prep applied. There is a fungal rash in her groin and perineum secondary to moisture. Heels are clean and intact. Recomm end nystatin powder to rash and proshield for her perineum and buttocks. The patient's Clinical Indicators include: 03/06/18 technical manager chemical plant note: Perineum and buttocks have chronic changes associated with chronic IAD. There is a stage 2 healing PI on her left, medial buttock with a pink base.. Skin prep applied. There is a fungal rash in her groin and perineum secondary to moisture. Heels are clean and intact. Recomm end nystatin powder to rash and proshield for her perineum and buttocks. Query created by: Yuli Lux on 03/08/2018 9:05 AM Electronically signed by: Mc Russell MD 03/16/2018 4:13 PM
== END 2018-03-09 10:43 | disposition home health service (06) | DRG 683 ==
LOC: H.ER 09:54 → H.ERHOLD 15:03 → H.TEL 17:07 → OBSVTOIN 03-07 13:34
PROVIDERS: ADMIT Family Medicine Geriatric Medicine; ATTEND Family Medicine Geriatric Medicine
DX: N17.9 Acute kidney failure, unspecified (principal); N39.0 Urinary tract infection, site not specified; I69.351 Hemiplegia and hemiparesis following cerebral infarction affecting right dominant side; E86.0 Dehydration; S09.90XA Unspecified injury of head, initial encounter; E11.65 Type 2 diabetes mellitus with hyperglycemia; E11.21 Type 2 diabetes mellitus with diabetic nephropathy; N18.3 Chronic kidney disease, stage 3 (moderate); I12.9 Hypertensive chronic kidney disease with stage 1 through stage 4 chronic kidney disease, or unspecified chronic kidney disease; E87.5 Hyperkalemia; B96.20 Unspecified Escherichia coli [E. coli] as the cause of diseases classified elsewhere; I69.320 Aphasia following cerebral infarction; E11.22 Type 2 diabetes mellitus with diabetic chronic kidney disease; E11.51 Type 2 diabetes mellitus with diabetic peripheral angiopathy without gangrene; E11.42 Type 2 diabetes mellitus with diabetic polyneuropathy; E11.319 Type 2 diabetes mellitus with unspecified diabetic retinopathy without macular edema; F03.90 Unspecified dementia, unspecified severity, without behavioral disturbance, psychotic disturbance, mood disturbance, and anxiety; E78.5 Hyperlipidemia, unspecified; E78.00 Pure hypercholesterolemia, unspecified; I25.10 Atherosclerotic heart disease of native coronary artery without angina pectoris; W01.0XXA Fall on same level from slipping, tripping and stumbling without subsequent striking against object, initial encounter; Z79.02 Long term (current) use of antithrombotics/antiplatelets; Z79.4 Long term (current) use of insulin; Z79.82 Long term (current) use of aspirin; Z87.81 Personal history of (healed) traumatic fracture; Y92.002 Bathroom of unspecified non-institutional (private) residence as the place of occurrence of the external cause